=== PATIENT | female | born 1960 | race Hispanic/Latino ===

== ENCOUNTER 2020-04-14 17:51 | Emergency (ER) | payer BC ==
[2020-04-14 18:21] VITALS: BP 121/72
--- NOTE | 2020-04-14 19:09 | Event Note ---
ED Screening Note Date of service: 04/14/20 Time: 19:08 ED Screening Note: Patient complains of left index finger pain and right wrist pain after fall today also states hit the right side of her head tripped over speed bump This initial assessment/diagnostic orders/clinical plan/treatment(s) is/are subject to change based on patients health status, clinical progression and re- assessment by fellow clinical providers in the ED. Further treatment and workup at subsequent clinical providers discretion. Patient/guardian urged not to elope from the ED as their condition may be serious if not clinically assessed and managed. Initial orders include: xrs tetanus vaccination
--- NOTE | 2020-04-14 20:12 | XRay Report ---
FINGERS 3 VIEWS INDICATION / CLINICAL INFORMATION: Index finger bruising and swelling after fall. COMPARISON: None available. FINDINGS: No significant skeletal abnormality Signer Name: Ryan Gupta MD FACR Signed: 04/14/2020 8:08 PM Workstation Name: [id number]
--- NOTE | 2020-04-14 20:12 | XRay Report ---
RIGHT WRIST 3 VIEWS INDICATION / CLINICAL INFORMATION: pain after fall. COMPARISON: None available. FINDINGS: Questionable lucency in the radial styloid process although this is only seen on one view and may be artifact. No other significant skeletal abnormality Signer Name: Ryan Gupta MD FACR Signed: 04/14/2020 8:07 PM Workstation Name: [id number]
[2020-04-14] MEDS ORDERED: ONDANSETRON 4 MG ODT TAB PO ONE (22:33)
[2020-04-14] MEDS ORDERED: ACETAMINOPHEN 500 MG TAB PO ONE (22:33)
--- NOTE | 2020-04-15 02:31 | Cat Scan Report ---
CT HEAD WITHOUT CONTRAST INDICATION: Head injury from a fall. TECHNIQUE: All CT scans at this location are performed using CT dose reduction for ALARA by means of automated exposure control. COMPARISON: None available. FINDINGS: BRAIN: No hemorrhage or mass effect are seen. No evidence of acute infarction is noted. White matter microvascular changes are noted. A lacunar infarction is seen in the right centrum semiovale which is likely old. ORBITS: Normal as visualized. SOFT TISSUES OF HEAD: Normal. CALVARIUM: A metallic pin is seen in the left temporal bone extending well exterior. VISUALIZED PARANASAL SINUSES AND MASTOID AIR CELLS: Clear. ADDITIONAL FINDINGS: None. IMPRESSION: No acute intracranial abnormality. CT FACE HISTORY: Head injury from a fall. COMPARISON: None. TECHNIQUE: Axial images of the face were obtained. Coronal reformats were generated. All CT scans at this location are performed using CT dose reduction for ALARA by means of automated exposure control . CONTRAST: None. FINDINGS: Facial bones: No fracture or other significant abnormality. Paranasal sinuses: Clear. Orbits: No significant abnormality. Visualized images of the intracranial space: No significant abnormality. Additional findings: None. IMPRESSION: No significant abnormality. CT CERVICAL SPINE WITHOUT CONTRAST INDICATION: Head injury from a fall. TECHNIQUE: All CT scans at this location are performed using CT dose reduction for ALARA by means of automated exposure control. Axial CT images were obtained through the cervical spine. Sagittal and co pippa reformatted images were produced. COMPARISON: None available. Cervical spine findings: Degenerative and arthritic changes are seen. Mild disc space narrowing is no jennifer at C5-6 and C6-7. Mild posterior osteophytes are seen at both levels, more to C6-7. Mild facet ar thritic changes are seen. C1 to arthritic changes are noted. No fractures are seen. No obvious disc h erniation is noted. Additional findings: None. IMPRESSION: No acute findings. Signer Name: Solo Ordoñez MD Signed: 04/15/2020 2:26 AM Workstation Name: [id number]
--- NOTE | 2020-04-15 02:43 | Emergency Department Report ---
ED Fall HPI - General Chief Complaint: Fall Stated Complaint: FACE INJURY/FALL AT WORK Time Seen by Provider: 04/14/20 19:06 Source: patient, EMS Mode of arrival: Ambulatory - History of Present Illness Initial Comments: Patient is a 60-year-old white female with no past medical history presents to the ED with complaint of acute onset persistent headache, multiple abrasions on the right facial area, right wrist and left index finger pain and swelling and nausea and vomiting after she tripped and fell down on the concrete 8 hours ago and hit her face on the concrete and landed on her right wrist. Patient states that the pain has been persistent and about 2 hours prior to arrival in the ED she started feeling nauseous and had one episode of vomiting. Patient denies loss of consciousness, dizziness, syncope, seizures, palpitations, chest pain, shortness of breath, back pain, abdominal pain, fever, chills, cough, numbness and tingling or weakness of upper and lower extremities bilaterally or change in vision. MD Complaint: fall, other (Left index finger pain and swelling, right wrist pain and right facial abrasion with headache, nausea and vomiting) -: Sudden, hour(s) (8) Fall From: standing, other (walking) When Fall Occurred: 4-6 hours NETWORK ADMIN Fall Witnessed: yes, by bystander, yes, by living facility s Place Fall Occurred: work, street Loss of Consciousness: none Prolonged Down Time?: no Symptoms Prior to Fall: none Location: head, face, neck, other (right wrist, left index finger) Location - Extremities: Right: Hand (right wrist; left index finger) Severity: moderate Severity scale (0 -10): 6 Quality: sharp, aching Context: tripped/slipped Associated Symptoms: headache, neck pain. denies: numbness, weakness, chest paint, shortness of breath, abdominal pain, unable to walk, lightheaded, vertigo, confusion, other - Related Data Previous Rx's Medication Instructions Recorded Last Taken Type Ciprofloxacin HCl [Ciprofloxacin 500 mg PO Q12H #10 tab 05/09/16 Unknown Rx TAB] Cyclobenzaprine [Flexeril] 10 mg PO TID PRN #14 tablet 05/09/16 Unknown Rx traMADoL [Ultram] 50 mg PO Q4HR PRN #20 tablet 05/09/16 Unknown Rx Gabapentin [Neurontin] 300 mg PO BID #60 cap 05/14/16 Unknown Rx HYDROcodone/APAP 5-325 [[place] 1 - 2 each PO Q6HR PRN #20 tablet 05/14/16 Unknown Rx 5/325] Ibuprofen [Motrin 800 MG tab] 800 mg PO Q8HR PRN #20 tablet 05/14/16 Unknown Rx Nitrofurantoin Terry/M-Cryst 100 mg PO Q12HR #1 capsule 03/10/20 Unknown Rx [Macrobid CAP] Cyclobenzaprine [Flexeril] 10 mg PO Q12H PRN #15 tablet 04/15/20 Unknown Rx Naproxen 500 mg PO Q12H PRN #30 tablet 04/15/20 Unknown Rx Allergies Allergy/AdvReac Type Severity Reaction Status Date / Time No Known Allergies Allergy Verified 04/14/20 18:15 ED Review of Systems ROS: Stated complaint: FACE INJURY/FALL AT WORK Other details as noted in HPI Constitutional: denies: chills, fever Eyes: denies: eye pain, eye discharge, vision change ENT: other (Facial abrasion). denies: ear pain, throat pain Respiratory: denies: cough, shortness of breath, wheezing Cardiovascular: denies: chest pain, palpitations Endocrine: no symptoms reported Gastrointestinal: nausea, vomiting. denies: abdominal pain, diarrhea Genitourinary: denies: urgency, dysuria, discharge Musculoskeletal: joint swelling (Left index finger swelling), arthralgia (Right wrist pain; left index finger pain), other (Neck pain). denies: back pain Skin: other (Right facial abrasions). denies: rash, lesions Neurological: headache. denies: weakness, paresthesias Psychiatric: denies: anxiety, depression Hematological/Lymphatic: denies: easy bleeding, easy bruising ED Past Medical Hx - Past Medical History Additional medical history: turners syndrome, hyperthyroid, psaoriasis. Chronic back pain, Atelectasis of both lungs, Umbilical hernia, DJD Pyuria, Psoriasis, TE-MOAK - Surgical History Hx Cholecystectomy: Yes Additional Surgical History: Mastoid surgery. Cochlear implant - Social History Smoking Status: Former Smoker Substance Use Type: None - Medications Home Medications: Home Medications Medication Instructions Recorded Confirmed Last Taken Type Ciprofloxacin HCl [Ciprofloxacin 500 mg PO Q12H #10 tab 05/09/16 Unknown Rx TAB] Cyclobenzaprine [Flexeril] 10 mg PO TID PRN #14 tablet 05/09/16 Unknown Rx traMADoL [Ultram] 50 mg PO Q4HR PRN #20 tablet 05/09/16 Unknown Rx Gabapentin [Neurontin] 300 mg PO BID #60 cap 05/14/16 Unknown Rx HYDROcodone/APAP 5-325 [[place] 1 - 2 each PO Q6HR PRN #20 tablet 05/14/16 Unknown Rx 5/325] Ibuprofen [Motrin 800 MG tab] 800 mg PO Q8HR PRN #20 tablet 05/14/16 Unknown Rx Nitrofurantoin Terry/M-Cryst 100 mg PO Q12HR #1 capsule 03/10/20 Unknown Rx [Macrobid CAP] Cyclobenzaprine [Flexeril] 10 mg PO Q12H PRN #15 tablet 04/15/20 Unknown Rx Naproxen 500 mg PO Q12H PRN #30 tablet 04/15/20 Unknown Rx ED Physical Exam - General Limitations: No Limitations General appearance: alert, in no apparent distress - Head Head exam: Present: other (Right zygomatic facial abrasions) - Eye Eye exam: Present: normal appearance, PERRL, EOMI Pupils: Present: normal accommodation - ENT ENT exam: Present: normal exam, normal orophraynx, mucous membranes moist, TM's normal bilaterally, normal external ear exam - Neck Neck exam: Present: normal inspection, tenderness (Palpable cervical paraspinal musculoskeletal tenderness), full ROM - Respiratory Respiratory exam: Present: normal lung sounds bilaterally. Absent: respiratory distress, wheezes, rales, rhonchi, chest wall tenderness, accessory muscle use, decreased breath sounds - Cardiovascular Cardiovascular Exam: Present: regular rate, normal rhythm, normal heart sounds. Absent: systolic murmur, diastolic murmur, rubs, gallop - GI/Abdominal GI/Abdominal exam: Present: soft, normal bowel sounds. Absent: tenderness, guarding, rebound, hyperactive bowel sounds, hypoactive bowel sounds - Extremities Exam Extremities exam: Present: normal inspection, full ROM, tenderness (Palpable right wrist and left index finger tenderness with limited range of motion due to pain), normal capillary refill, joint swelling (Left index finger swelling and tenderness) - Back Exam Back exam: Present: normal inspection, full ROM. Absent: tenderness, CVA tenderness (R), CVA tenderness (L), muscle spasm, paraspinal tenderness, vertebral tenderness - Neurological Exam Neurological exam: Present: alert, oriented X3, CN II-XII intact, normal gait, reflexes normal - Psychiatric Psychiatric exam: Present: normal affect, normal mood - Skin Skin exam: Present: warm, dry, intact, normal color, abrasion (Right zygomatic facial abrasion). Absent: rash ED Course Vital Signs 04/14/20 18:20 Temperature 98.6 F Pulse Rate 90 Respiratory 17 Rate Blood Pressure 121/72 O2 Sat by Pulse 97 Oximetry ED Medical Decision Making - Radiology Data Radiology results: report reviewed, image reviewed Findings [address] [address] XRay Report Signed Patient: EVELYN HINKLE MR#: [id number] : 1960 Acct:[id number] Age/Sex: 60 / F ADM Date: 04/14/20 Loc: ED Attending Dr: Ordering Physician: LAMONT VIVAR Date of Service: 04/14/20 Procedure(s): XR finger(s) 2+V LT Accession Number(s): [id number] cc: LAMONT VIVAR Fluoro Time In Minutes: FINGERS 3 VIEWS INDICATION / CLINICAL INFORMATION: Index finger bruising and swelling after fall. COMPARISON: None available. FINDINGS: No significant skeletal abnormality Signer Name: Ryan Gupta MD FACR Signed: 04/14/2020 8:08 PM Workstation Name: [id number] Transcribed By: MS Dictated By: Ryan Gupta MD Electronically Authenticated By: Ryan Gupta MD Signed Date/Time: 04/14/202007 DD/ 07 TD/TT: Findings [address] [address] XRay Report Signed Patient: EVELYN HINKLE MR#: [id number] : 1960 Acct:[id number] Age/Sex: 60 / F ADM Date: 04/14/20 Loc: ED Attending Dr: Ordering Physician: LAMONT VIVAR Date of Service: 04/14/20 Procedure(s): XR wrist 3+V RT Accession Number(s): [id number] cc: LAMONT VIVAR Fluoro Time In Minutes: RIGHT WRIST 3 VIEWS INDICATION / CLINICAL INFORMATION: pain after fall. COMPARISON: None available. FINDINGS: Questionable lucency in the radial styloid process although this is only seen on one view and may be artifact. No other significant skeletal abnormality Signer Name: Ryan Gupta MD FACR Signed: 04/14/2020 8:07 PM Workstation Name: [id number] Transcribed By: MS Dictated By: Ryan Gupta MD Electronically Authenticated By: Ryan Gupta MD Signed Date/Time: 04/14/202006 DD/ 01 TD/TT: ------- Findings [facility] [address] [place] [address] Cat Scan Report Signed Patient: EVELYN HINKLE MR#: [id number] : 1960 Acct:[id number] Age/Sex: 60 / F ADM Date: 04/14/20 Loc: ED Attending Dr: Ordering Physician: ADRIANNA GUILLORY Date of Service: 04/14/20 Procedure(s): CT cervical spine wo con Accession Number(s): [id number] cc: ADRIANNA GUILLORY CT HEAD WITHOUT CONTRAST INDICATION: Head injury from a fall. TECHNIQUE: All CT scans at this location are performed using CT dose reduction for ALARA by means of automated exposure control. COMPARISON: None available. FINDINGS: BRAIN: No hemorrhage or mass effect are seen. No evidence of acute infarction is noted. White matter microvascular changes are noted. A lacunar infarction is seen in the right centrum semiovale which is likely old. ORBITS: Normal as visualized. SOFT TISSUES OF HEAD: Normal. CALVARIUM: A metallic pin is seen in the left temporal bone extending well exterior. VISUALIZED PARANASAL SINUSES AND MASTOID AIR CELLS: Clear. ADDITIONAL FINDINGS: None. IMPRESSION: No acute intracranial abnormality. CT FACE HISTORY: Head injury from a fall. COMPARISON: None. TECHNIQUE: Axial images of the face were obtained. Coronal reformats were generated. All CT scans at this location are performed using CT dose reduction for ALARA by means of automated exposure control. CONTRAST: None. FINDINGS: Facial bones: No fracture or other significant abnormality. Paranasal sinuses: Clear. Orbits: No significant abnormality. Visualized images of the intracranial space: No significant abnormality. Additional findings: None. IMPRESSION: No significant abnormality. CT CERVICAL SPINE WITHOUT CONTRAST INDICATION: Head injury from a fall. TECHNIQUE: All CT scans at this location are performed using CT dose reduction for ALARA by means of automated exposure control. Axial CT images were obtained through the cervical spine. Sagittal and coronal reformatted images were produced. COMPARISON: None available. Cervical spine findings: Degenerative and arthritic changes are seen. Mild disc space narrowing is noted at C5-6 and C6-7. Mild posterior osteophytes are seen at both levels, more to C6-7. Mild facet arthritic changes are seen. C1 to arthritic changes are noted. No fractures are seen. No obvious disc herniation is noted. Additional findings: None. IMPRESSION: No acute findings. Signer Name: Solo Ordoñez MD Signed: 04/15/2020 2:26 AM Workstation Name: [id number] Transcribed By: GAGAN Dictated By: Solo Ordoñez MD Electronically Authenticated By: Solo Ordoñez MD Signed Date/Time: 04/15/20225 DD/ 4 TD/TT: Findings [facility] [address] [place] [address] Cat Scan Report Signed Patient: EVELYN HINKLE MR#: [id number] : 1960 Acct:[id number] Age/Sex: 60 / F ADM Date: 04/14/20 Loc: ED Attending Dr: Ordering Physician: ADRIANNA GUILLORY Date of Service: 04/14/20 Procedure(s): CT facial bones wo con Accession Number(s): [id number] cc: ADRIANNA GUILLORY CT HEAD WITHOUT CONTRAST INDICATION: Head injury from a fall. TECHNIQUE: All CT scans at this location are performed using CT dose reduction for ALARA by means of automated exposure control. COMPARISON: None available. FINDINGS: BRAIN: No hemorrhage or mass effect are seen. No evidence of acute infarction is noted. White matter microvascular changes are noted. A lacunar infarction is seen in the right centrum semiovale which is likely old. ORBITS: Normal as visualized. SOFT TISSUES OF HEAD: Normal. CALVARIUM: A metallic pin is seen in the left temporal bone extending well exterior. VISUALIZED PARANASAL SINUSES AND MASTOID AIR CELLS: Clear. ADDITIONAL FINDINGS: None. IMPRESSION: No acute intracranial abnormality. CT FACE HISTORY: Head injury from a fall. COMPARISON: None. TECHNIQUE: Axial images of the face were obtained. Coronal reformats were generated. All CT scans at this location are performed using CT dose reduction for ALARA by means of automated exposure control. CONTRAST: None. FINDINGS: Facial bones: No fracture or other significant abnormality. Paranasal sinuses: Clear. Orbits: No significant abnormality. Visualized images of the intracranial space: No significant abnormality. Additional findings: None. IMPRESSION: No significant abnormality. CT CERVICAL SPINE WITHOUT CONTRAST INDICATION: Head injury from a fall. TECHNIQUE: All CT scans at this location are performed using CT dose reduction for ALARA by means of automated exposure control. Axial CT images were obtained through the cervical spine. Sagittal and coronal reformatted images were produced. COMPARISON: None available. Cervical spine findings: Degenerative and arthritic changes are seen. Mild disc space narrowing is noted at C5-6 and C6-7. Mild posterior osteophytes are seen at both levels, more to C6-7. Mild facet arthritic changes are seen. C1 to arthritic changes are noted. No fractures are seen. No obvious disc herniation is noted. Additional findings: None. IMPRESSION: No acute findings. Signer Name: Solo Ordoñez MD Signed: 04/15/2020 2:26 AM Workstation Name: [id number] Transcribed By: GJ Dictated By: Solo Ordoñez MD Electronically Authenticated By: Solo Ordoñez MD Signed Date/Time: 04/15/20225 DD/ 4 TD/TT: Findings [facility] [address] [place] [address] Cat Scan Report Signed Patient: EVELYN HINKLE MR#: [id number] : 1960 Acct:[id number] Age/Sex: 60 / F ADM Date: 04/14/20 Loc: ED Attending Dr: Ordering Physician: ADRIANNA GUILLORY Date of Service: 04/14/20 Procedure(s): CT head/brain wo con Accession Number(s): [id number] cc: ADRIANNA GUILLORY CT HEAD WITHOUT CONTRAST INDICATION: Head injury from a fall. TECHNIQUE: All CT scans at this location are performed using CT dose reduction for ALARA by means of automated exposure control. COMPARISON: None available. FINDINGS: BRAIN: No hemorrhage or mass effect are seen. No evidence of acute infarction is noted. White matter microvascular changes are noted. A lacunar infarction is seen in the right centrum semiovale which is likely old. ORBITS: Normal as visualized. SOFT TISSUES OF HEAD: Normal. CALVARIUM: A metallic pin is seen in the left temporal bone extending well exterior. VISUALIZED PARANASAL SINUSES AND MASTOID AIR CELLS: Clear. ADDITIONAL FINDINGS: None. IMPRESSION: No acute intracranial abnormality. CT FACE HISTORY: Head injury from a fall. COMPARISON: None. TECHNIQUE: Axial images of the face were obtained. Coronal reformats were generated. All CT scans at this location are performed using CT dose reduction for ALARA by means of automated exposure control. CONTRAST: None. FINDINGS: Facial bones: No fracture or other significant abnormality. Paranasal sinuses: Clear. Orbits: No significant abnormality. Visualized images of the intracranial space: No significant abnormality. Additional findings: None. IMPRESSION: No significant abnormality. CT CERVICAL SPINE WITHOUT CONTRAST INDICATION: Head injury from a fall. TECHNIQUE: All CT scans at this location are performed using CT dose reduction for ALARA by means of automated exposure control. Axial CT images were obtained through the cervical spine. Sagittal and coronal reformatted images were produced. COMPARISON: None available. Cervical spine findings: Degenerative and arthritic changes are seen. Mild disc space narrowing is noted at C5-6 and C6-7. Mild posterior osteophytes are seen at both levels, more to C6-7. Mild facet arthritic changes are seen. C1 to arthritic changes are noted. No fractures are seen. No obvious disc herniation is noted. Additional findings: None. IMPRESSION: No acute findings. Signer Name: Solo Ordoñez MD Signed: 04/15/2020 2:26 AM Workstation Name: [id number] Transcribed By: GAGAN Dictated By: Solo Ordoñez MD Electronically Authenticated By: Solo Ordoñez MD Signed Date/Time: 04/15/206 DD/ 0215 TD/TT: - Medical Decision Making This is a 60-year-old white female with no past medical history presents to the ED with complaint of acute onset persistent headache, multiple abrasions on the right facial area, right wrist and left index finger pain and swelling and nausea and vomiting after she tripped and fell down on the concrete 8 hours ago and hit her face on the concrete and landed on her right wrist. Patient states that the pain has been persistent and about 2 hours prior to arrival in the ED she started feeling nauseous and had one episode of vomiting. In the ED, patient is alert and oriented x3 and is not in distress. Patient was treated for pain in the ED and also given antiemetics. Head CT scan without contrast shows no acute intracranial abnormalities or hemorrhage. C-spine CT scan without contrast shows no acute cervical disc fractures or subluxations. Facial CT scan without contrast also shows no acute facial bone fractures or subluxations. Right wrist x-ray shows no acute fractures or subluxations and left index finger x-ray also shows no acute fractures or subluxations. Right wrist was splinted with a Velcro splint and the patient was discharged home on pain medications and advised to follow-up with her primary care physician in 5 to 7 days for reevaluation return to the ED immediately if symptoms get worse. - Differential Diagnosis facial bone fractures; wrist fracture; finger fracture; head injury Critical care attestation.: If time is entered above; I have spent that time in minutes in the direct care of this critically ill patient, excluding procedure time. ED Disposition Clinical Impression: Contusion of face, scalp, and neck Qualifiers: Encounter type: initial encounter Qualified Code(s): S00.83XA - Contusion of other part of head, initial encounter; S00.03XA - Contusion of scalp, initial encounter; S10.93XA - Contusion of unspecified part of neck, initial encounter Sprain of right wrist Qualifiers: Encounter type: initial encounter Qualified Code(s): S63.501A - Unspecified sprain of right wrist, initial encounter Sprain of left index finger Qualifiers: Encounter type: initial encounter Sprain of finger site: unspecified site Qualified Code(s): S63.611A - Unspecified sprain of left index finger, initial encounter Disposition: DC-01 TO HOME OR SELFCARE Is pt being admited?: No Does the pt Need Aspirin: No Condition: Stable Instructions: Finger Sprain (ED), Wrist Injury (ED), Wrist Sprain (ED), Scalp Contusion in Adults (ED) Additional Instructions: Take medication with food, drink plenty of fluids and follow-up with your primary care physician in 5 to 7 days for reevaluation. Return to the ED immediately if symptoms get worse. Prescriptions: Cyclobenzaprine [Flexeril] 10 mg PO Q12H PRN #15 tablet PRN Reason: Muscle Spasm Naproxen 500 mg PO Q12H PRN #30 tablet PRN Reason: Pain , Severe (7-10) Referrals: [facility] [Provider Group] - 3-5 Days Forms: Work/School Release Form(ED) Time of Disposition: 02:51 Print Language: FIJIAN
== END 2020-04-15 03:20 | disposition home or self-care (01) ==
LOC: ED 17:51
DX: S63.501A Unspecified sprain of right wrist, initial encounter (principal); S63.611A Unspecified sprain of left index finger, initial encounter; S00.83XA Contusion of other part of head, initial encounter; S00.03XA Contusion of scalp, initial encounter; S10.93XA Contusion of unspecified part of neck, initial encounter; Z98.890 Other specified postprocedural states; Z87.891 Personal history of nicotine dependence; Z79.1 Long term (current) use of non-steroidal anti-inflammatories (NSAID); Z79.2 Long term (current) use of antibiotics; Z79.899 Other long term (current) drug therapy; W01.0XXA Fall on same level from slipping, tripping and stumbling without subsequent striking against object, initial encounter; Y93.89 Activity, other specified; Y92.410 Unspecified street and highway as the place of occurrence of the external cause; Y99.8 Other external cause status
CPT/HCPCS: 70450; 70486; 72125; Q0162